=== PATIENT | female | born 1970 | race Caucasian/White ===

== ENCOUNTER 2024-03-30 17:07 | Emergency (ER) | payer MEDICARE, OTHER ==
[~2024-03-30] VITALS: Ht 157.5 cm; Wt 86.2 kg
[2024-03-30 17:07] VITALS: PULSE 72; RESP 18; TEMP 98.4
[~2024-03-30 17:07] MED LIST: CLOTRIMAZOLE-BE15 GM TOP; FLUCONAZOLE100 MG PO; LEVAQUIN500 MG PO; NORCO 7.5-3251 EACH PO; ZOFRAN4 MG PO
[2024-03-30] MEDS: ACETAMINOPHEN 325 MG TAB PO ONE (18:44)
[2024-03-30 18:45] VITALS: BP 145/84; PULSE 76; RESP 18; TEMP 98.4; O2SAT 98
[2024-03-30] MEDS: KETOROLAC TROMETHAMINE 30 MG/ML VIAL IM ONE (18:45)
== END 2024-03-30 18:48 | disposition home or self-care (01) ==
LOC: FSED 17:17
DX: M25.511 Pain in right shoulder (principal); S43.491A Other sprain of right shoulder joint, initial encounter; X50.0XXA Overexertion from strenuous movement or load, initial encounter; Y92.89 Other specified places as the place of occurrence of the external cause; E11.9 Type 2 diabetes mellitus without complications; M81.0 Age-related osteoporosis without current pathological fracture
CPT/HCPCS: 29240; 73030; 99284; J1885

== ENCOUNTER 2024-05-03 13:45 | Outpatient (RCR) | payer MEDICARE | END 2024-05-05 | LOC: PT 13:45 | PROVIDERS: ATTEND Specialist | DX: S49.91XA Unspecified injury of right shoulder and upper arm, initial encounter (principal) ==

== ENCOUNTER 2024-05-16 16:27 | Outpatient (RCR) | payer MEDICARE | END 2024-06-04 | LOC: PT 16:27 | PROVIDERS: ATTEND Specialist | DX: S49.91XA Unspecified injury of right shoulder and upper arm, initial encounter (principal) ==

== ENCOUNTER 2024-09-27 14:06 | Emergency (ER) | payer MEDICARE, OTHER ==
[2024-09-27 14:13] VITALS: PULSE 86; RESP 20; TEMP 99.1; O2SAT 97
[2024-09-27] MEDS ORDERED: BENZONATATE100 MG PO (14:51)
[2024-09-27] MEDS ORDERED: AZITHROMYCIN250 MG PO (14:51)
== END 2024-09-27 14:55 | disposition home or self-care (01) ==
LOC: FSED 14:10
DX: R05.9 Cough, unspecified (principal); J20.9 Acute bronchitis, unspecified; R09.89 Other specified symptoms and signs involving the circulatory and respiratory systems; E11.9 Type 2 diabetes mellitus without complications; M81.0 Age-related osteoporosis without current pathological fracture; Z11.52 Encounter for screening for COVID-19; F17.210 Nicotine dependence, cigarettes, uncomplicated
CPT/HCPCS: 0223U; 83518; 87400; 99284

== ENCOUNTER 2024-11-09 14:00 | Emergency (ER) | payer MEDICARE, OTHER ==
[~2024-11-09] VITALS: Ht 157.5 cm; Wt 80.3 kg
[~2024-11-09 14:00] MED LIST changes: +AZITHROMYCIN250 MG PO; +BENZONATATE100 MG PO
[2024-11-09 14:18] VITALS: PULSE 81; RESP 20; TEMP 98.4
[2024-11-09] MEDS ORDERED: KETOROLAC TROME10 MG PO (15:56)
[2024-11-09] MEDS ORDERED: CYCLOBENZAPRINE5 MG PO (15:56)
[2024-11-09] MEDS ORDERED: HYDROCODON-ACE1 EA11 PO (15:57)
[2024-11-09 17:39] VITALS: BP 163/89; PULSE 63; RESP 20; O2SAT 98
== END 2024-11-09 16:05 | disposition home or self-care (01) ==
LOC: FSED 14:06
DX: M26.622 Arthralgia of left temporomandibular joint (principal); E11.9 Type 2 diabetes mellitus without complications; M81.0 Age-related osteoporosis without current pathological fracture; F17.210 Nicotine dependence, cigarettes, uncomplicated
CPT/HCPCS: 70486; 99283

== ENCOUNTER → 2025-01-23 | Day surgery (SDC) | payer MEDICARE, OTHER ==
[~2025-01-23] MED LIST changes: +BREZTRI AEROS10.7 GM INH; +CYCLOBENZAPRINE5 MG PO; +FENTANYL CITRATE/PF 100MCG/2 ML INJ ONE; +HYDROCODON-ACE1 EA11 PO; +HYOSCYAMINE SULFATE 0.5 MG/ML INJ ONE; +KETOROLAC TROME10 MG PO; +LACTATED RINGER'S 1,000 ML ONE; +LIDOCAINE HCL 2% LOCAL INJ 5 ML SDV VIAL INJ ONE; +METOCLOPRAMIDE HCL 10 MG/2ML VIAL ONE; +MIDAZOLAM HCL 2 MG/2 ML VIAL ONE; +ONDANSETRON HCL INJ 2MG/ML 2ML 2 MG/ML VIAL ONE; +PROPOFOL IV EMULSION 10 MG/ML 20 ML VIAL ONE; +TIZANIDINE HCL4 M1 PO; +VENTOLIN HFA18 GM INH
[2025-01-23 15:34] VITALS: TEMP 97.9
[2025-01-23 16:05] VITALS: BP 110/70; PULSE 70; RESP 16; O2SAT 97
== END | disposition home or self-care (01) ==
LOC: OR 13:12
PROVIDERS: ATTEND Internal Medicine Gastroenterology
DX: Z12.11 Encounter for screening for malignant neoplasm of colon (principal); D12.3 Benign neoplasm of transverse colon; D12.5 Benign neoplasm of sigmoid colon; K92.1 Melena; K64.8 Other hemorrhoids; K21.9 Gastro-esophageal reflux disease without esophagitis; M81.0 Age-related osteoporosis without current pathological fracture; M41.9 Scoliosis, unspecified; M10.9 Gout, unspecified; J40 Bronchitis, not specified as acute or chronic; F43.10 Post-traumatic stress disorder, unspecified; F31.9 Bipolar disorder, unspecified; F41.9 Anxiety disorder, unspecified; F17.210 Nicotine dependence, cigarettes, uncomplicated; Z71.6 Tobacco abuse counseling; Z88.6 Allergy status to analgesic agent; Z88.1 Allergy status to other antibiotic agents; Z01.810 Encounter for preprocedural cardiovascular examination; Z79.899 Other long term (current) drug therapy; Z68.33 Body mass index [BMI] 33.0-33.9, adult; Z71.3 Dietary counseling and surveillance
CPT/HCPCS: 45385; 93005; J1980; J2003; J2250; J2405; J2704; J2765; J3010; J7121; 45378

== ENCOUNTER → 2025-02-16 | Outpatient (REF) | payer MEDICARE, OTHER ==
[~2025-02-16] MED LIST changes: -FENTANYL CITRATE/PF 100MCG/2 ML INJ ONE; -HYOSCYAMINE SULFATE 0.5 MG/ML INJ ONE; -LACTATED RINGER'S 1,000 ML ONE; -LIDOCAINE HCL 2% LOCAL INJ 5 ML SDV VIAL INJ ONE; -METOCLOPRAMIDE HCL 10 MG/2ML VIAL ONE; -MIDAZOLAM HCL 2 MG/2 ML VIAL ONE; -ONDANSETRON HCL INJ 2MG/ML 2ML 2 MG/ML VIAL ONE; -PROPOFOL IV EMULSION 10 MG/ML 20 ML VIAL ONE
== END ==
LOC: US 09:42
PROVIDERS: ATTEND Nurse Practitioner
DX: R10.84 Generalized abdominal pain (principal)
CPT/HCPCS: 76700